=== PATIENT | male | born 1975 | race Hispanic/Latino ===

== ENCOUNTER 2018-02-14 22:24 | Inpatient (IN) | payer OTHER ==
[2018-02-14] MEDS ORDERED: Acetaminophen 325 MG TAB PO PRN (23:41)
[2018-02-14 23:45] LABS: Anion Gap 11 mmol/L (10-20); BUN (Urea Nitrogen) 10 mg/dL (8.9-20.6); Calc. Creatinine Clearance 0 mL/min (70-130); Calcium 9.5 mg/dL (7.8-10.44); Carbon Dioxide 30 mmol/L (22-29); Chloride 98 mmol/L (98-107); Estimated GFR-MDRD Greater than 90; Glucose 94 mg/dL (70-105); Potassium 3.3 mmol/L (3.5-5.1); Sodium 136 mmol/L (136-145)
[2018-02-15] MEDS ORDERED: diphenhydrAMINE 50 MG/ML VIAL ONE
[2018-02-15 00:52] LABS: HBCM Index 0.05 S/CO (0-0.79); HBSAg Index 0.22 S/CO (0-0.99); Hep A IgM AB Non-Reactive (NonReactive); Hep A IgM S/CO 0.11 S/CO (0-0.79); Hep B Surf Ag Non-Reactive S/CO (NonReactive); Hepatitis B Core IgM Abs Non-Reactive (NonReactive)
[2018-02-15] MEDS: Sodium Chloride 0.9% 1,000 ML IV SCH ×3 (00:59→17:40)
[2018-02-15 01:24] VITALS: BMI 27.2
[2018-02-15 01:49] LABS: Hep C IgG Ab Reflex HepC Qnt (NonReactive); Hep C Index 15.79 S/CO (0-0.79)
[2018-02-15] MEDS ORDERED: diphenhydrAMINE 50 MG/ML VIAL IVP SCH (04:15)
[2018-02-15 05:57] LABS: #Basophils 0.1 thou/uL (0.0-0.2); #Eosinphils 0.1 thou/uL (0.0-0.7); #Lymphocytes 1.6 thou/uL (1.20-3.40); #Monocytes 0.7 thou/uL (0.11-0.59); #Neutrophils 5.4 thou/uL (1.40-6.50); %Basophils 0.7 % (0.0-1.0); %Eosinophils 1.3 % (0.0-10.0); %Lymphocytes 20.3 % (21.0-51.0); %Monocytes 9.1 % (0.0-10.0); %Neutrophils 68.7 % (42.0-75.0); Hemoglobin 11.8 g/dL (14.0-18.0); Mean Corpuscular HGB CONC 31.8 g/dL (32.0-36.0); Mean Corpuscular Hemoglobin 29.5 pg (27.0-31.0); Mean Corpuscular Volume 92.7 fL (78.0-98.0); Mean Platelet Volume 10.6 fL (7.4-10.4); Platelet Count 210 thou/uL (130-400); RBC Distribution Width 14.6 % (11.5-14.5); Red Blood Cell (RBC) Count 4.01 mill/uL (4.70-6.10); White Blood Cell (WBC) Count 7.9 thou/uL (4.8-10.8)
[2018-02-15 06:22] LABS: ALT (SGPT) 34 U/L (8-55); AST (SGOT) 59 U/L (5-34); Albumin 2.8 g/dL (3.5-5.0); Alkaline Phosphatase 251 U/L (40-150); Anion Gap 11 mmol/L (10-20); BUN (Urea Nitrogen) 10 mg/dL (8.9-20.6); Calc. Creatinine Clearance 145 mL/min (70-130); Calcium 8.9 mg/dL (7.8-10.44); Carbon Dioxide 27 mmol/L (22-29); Chloride 102 mmol/L (98-107); Estimated GFR-MDRD Greater than 90; Globulin 3.2 g/dL (2.4-3.5); Glucose 91 mg/dL (70-105); Potassium 3.1 mmol/L (3.5-5.1); Sodium 137 mmol/L (136-145)
[2018-02-15 06:32] LABS: Bilirubin, Total 27.9 mg/dL (0.2-1.2)
--- NOTE | 2018-02-15 06:58 | HP ---
CHIEF COMPLAINT: Abdominal pain and itching. HISTORY OF PRESENT ILLNESS: Patient is a 43-year-old male who is an inmate who presents to the [facility] with complaints of abdominal pain, which has progressively gotten worse for the past couple weeks . Patient stated that for the past couple days, he has been itching and also has been a little bit n auseated. Patient stated that his abdominal pain initially was intermittent; however, now it is more frequent and more constant. He denies any fevers or chills. The patient states that he had his gal lbladder removed and also a part of his liver removed when he was 12 years old. He does not recall w hat was the reason for removal of his partial liver. The patient also had a blood transfusion when jayden lunsford was 12 years old during the hospitalization which required cholecystectomy. Patient states that he has never really had any issues with elevated bilirubin. Patient did states that he has been diagno sed with hepatitis C; however, he had his hepatitis C checked last year prior to incarceration and wa s told that everything looked okay. The patient stated that his stools have been more light brown in color recently. The patient also stated that he recently has been taking some sinus medication that was prescribed to him by the [facility], it was Nexium that he was on, he was given some prednisone a nd loratadine. PAST MEDICAL HISTORY: Hepatitis C. PAST SURGICAL HISTORY: He had a cholecystectomy and partial liver resection, according to him. SOCIAL HISTORY: Denies any drug use, occasionally smokes and prior to his incarceration, he used to drink about 2-4 cans of beer a day. Patient is a full code currently. ALLERGIES: He has got no known allergies. MEDICATIONS: The patient was recently has been taking Nexium and loratadine for allergies and also w as on prednisone. REVIEW OF SYSTEMS: All negative except for the ones mentioned above in the HPI. PHYSICAL EXAMINATION: VITAL SIGNS: Temperature of 98.1, 72, 16, 97% on room air, 124/69. GENERAL: He is awake, alert, oriented x3, appears pretty icteric. HEENT: His sclerae are significantly icteric. Also, his mucous membranes has mild yellow tint. CARDIOVASCULAR: S1, S2 present. No murmurs, rubs or gallops. LUNGS: Clear to auscultation. No rhonchi or wheezes noted. ABDOMEN: Soft. Bowel sounds are present x2. He does have pain upon palpation all over his abdomen area. EXTREMITIES: Pedal pulses present x2. No nuchal edema noted. NEUROLOGIC: No focal deficits noted. SKIN: His skin is significantly icteric. LABORATORY DATA: As of the following, patient initially was taken to [facility] where his C BC indicated a white count of 9.6, hemoglobin of 13.0, hematocrit of 37.0, platelets was 212. Differ ential was significantly normal. Liver function, sodium of 133, potassium of 2.5, chloride 95, BUN o f 13, creatinine of 0.4, his alkaline phosphatase was mildly elevated at 257 and his AST was 74, ALT was 44, bilirubin total was 32.6, bilirubin direct was 21.5. IMAGING: He did have a CT abdomen and pelvis, which indicated the following, CT abdomen and pelvis i ndicated a normal measured common bile duct. The liver is unremarkable and is visualized. The pancr eas is obscured. The kidneys showed no evidence of hydronephrosis. There is a tiny echogenic foci t hat indicated a nonobstructing calculi in the right kidney, so his abdominal pelvis CAT scan was esse ntially normal. ASSESSMENT AND PLAN: The patient is a 43-year-old male who presents to the hospital with abdominal p ain and jaundice. 1. Elevated bilirubin/jaundice. The patient's bilirubin is 32, appears to be significantly conjugat ed, no sign of hemolysis is noted since his hemoglobin is normal at 13 and the differential would be intrahepatic versus extrahepatic. We will check a hepatitis panel again, I do not think his hepatiti s C would give him significant elevation in his bilirubin. We will consult GI also. There is a poss ibility that certain medications could also be causing his elevated bilirubin, especially either if h e has Rotor syndrome versus Sabine-Serg syndrome and also possibly just using corticosteroids can a lso cause this; however, I am not sure exactly how many doses he took of the steroids. We will karsten nue some IV hydration. We will add some ursodiol since the patient is complaining of significant lisandra unt of itching. 2. Hypokalemia. We will replace his potassium and continue to monitor. 3. Deep venous thrombosis prophylaxis. We will put the patient on some sequential compression devic es.
[2018-02-15] MEDS ORDERED: Potassium Chloride 20 MEQ TAB PO SCH ×2 (08:15→17:00)
[2018-02-15 08:50] LABS: Bilirubin, Total 27.7 mg/dL (0.2-1.2)
[2018-02-15] MEDS ORDERED: Ursodiol 300 MG CAP PO SCH (09:00)
[2018-02-15 09:08] LABS: Phosphorus 2.4 mg/dL (2.3-4.7)
[2018-02-15 09:16] LABS: Bilirubin, Direct 19.4 mg/dL (0.1-0.3)
[2018-02-15] MEDS: hydrOXYzine 10 MG TAB PO PRN ×2 (15:24→22:18)
[2018-02-15] MEDS: Cholestyramine/Aspartame 4 gm Packet PO SCH (22:14)
--- NOTE | 2018-02-15 23:45 | CON ---
DATE OF CONSULTATION: 02/15/2018 REASON FOR CONSULTATION: Cholestasis/jaundice. CONSULTING PHYSICIAN: Dr. Kemi Schaffer. HISTORY OF PRESENT ILLNESS: The patient is a 43-year-old male with past medical history of possible chronic hepatitis C infection presenting with complaints of abdominal pain and jaundice. He states that over the last one month, he has been having increased mid epigastric/right upper quadrant abdominal pain characterized as a sharp/cramping type sensation that was nonradiating, initially intermittent but now more constant and would reach a severity of 5-6/10. He states the pain was associated with increased itching as well as yellowing of both his skin and his eyes over the same time period. Prior to these episodes, he states that he adds that he had been complaining of increased headaches as well as increased nasal congestion, for which he has been taking medications for both his headaches as well as an uhki-dfp-qeaakqk flu formulation in relation to his congestion. Also, of note, he was recently placed on sinus medication prednisone and loratadine for treatment of these conditions as well. Over the last 1-2 weeks, he also complains of increased bright red blood per rectum with hematochezia present primarily on the toilet paper with increased wiping, where it would happen approximately 1-2 times over the last week. He also endorses having approximately 1 to 2 solid bowel movements per day that would sometimes require intermittent straining in order to defecate. Lastly, he also complains of an increased weight loss of approximately 20 pounds over the last 2 weeks with some mild increase in exercise, but no significant dietary changes. However, he also adds that he gained approximately 10 pounds over the last week again with no significant change in activity or dietary measures. Currently, he denies any nausea, vomiting, fevers, chills, GI bleeding, dysphagia, odynophagia, encephalopathy, ascites, or lower extremity edema. Of note, the patient states that when he was 12 years old, he had his gallbladder and a portion of his liver removed, after which he did experience increased jaundice and was placed on cholestyramine for increased itching associated with this jaundice. REVIEW OF SYSTEMS: A 10-category review of systems was obtained with all responses negative with except for the pertinent positives as listed in the HPI. PAST MEDICAL HISTORY: Possible chronic hepatitis C. PAST SURGICAL HISTORY: Cholecystectomy with partial liver resection. FAMILY HISTORY: Denies any GI malignancies. SOCIAL HISTORY: Denies any tobacco, alcohol, or illicit drug use (he is currently incarcerated). OUTPATIENT MEDICATIONS: Nexium, loratadine, and prednisone. ALLERGIES: No known drug allergies. PHYSICAL EXAMINATION: VITAL SIGNS: Temperature 98.9, pulse 75, blood pressure 113/66, respiratory rate 16, satting 99% on room air. GENERAL: Patient was lying in bed in no acute distress. Alert and oriented x4. NECK: Supple. No JVD noted. Scleral icterus. Positive. CARDIOVASCULAR: Regular rate and rhythm with no discernible murmurs, gallops or rubs. LUNGS: Clear to auscultation bilaterally with no discernible wheezes or rales. ABDOMEN: Normoactive bowel sounds, soft, nontender, nondistended. EXTREMITIES: No cyanosis, clubbing, or edema. LABORATORY DATA: CBC with white blood cell count of 7.9, hemoglobin of 11.8, hematocrit 37.2, platelets 210. Chemistry with a sodium of 137, potassium 3.1, chloride 102, CO2 of 27, BUN 10, creatinine 0.74, glucose 91. AST 59, ALT 34, alkaline phosphatase 251, total bilirubin 27.7, LDH 353, albumin 2.8. Serologies revealed a hepatitis C antibody with viral load pending at this time. Imaging data mentioned of a prior CTA of the abdomen and pelvis performed in outside institution was listed in his chart, where the CT showed a normal common bile duct with the liver unremarkable. The pancreas was obscured with further evaluation limited. There was also a tiny echogenic foci indicating a nonobstructing calculi within the right kidney, but otherwise no intraabdominal pathology was noted. ASSESSMENT AND PLAN: The patient is a 43-year-old male with past medical history of possible chronic hepatitis C infection presenting with cholestasis on labs and jaundice on clinical evaluation. Jaundice: The patient states that he was in his usual state of health until approximately 1 month ago, when he began having increased systemic itching centered primarily on the lower and upper extremities. He also had increased scleral icterus and yellowing of his skin associated with increased abdominal pain and unexplained weight loss over the last 2 to 3 weeks. However, upon questioning the patient, he adds that he has been on multiple different medications over the last 1 to 2 months with taking an xoby-rmm-mnzsfeq flu formulation as well as a medication for headaches immediately prior to the onset of jaundice and scleral icterus. It is unknown what these medications particularly were, for that patient cannot remember the active ingredients. At this time given his relatively normal transaminases but elevated alkaline phosphatase and T bili, it assumes more of a cholestatic-type picture, given his normal CT scan at the outside institution. An obstructive process is highly unlikely. At this time, given the medication administration shortly before the appearance of jaundice, drug-induced liver injury, and resulting cholestasis is much more likely. Given the degree of elevation of his hyperbilirubinemia and length of time for this hyperbilirubinemia, it has probably had a chance to with albumin and may take some time in order to resolve with more conservative type measures; however, his differential could also include primary biliary cholangitis, chronic human immunodeficiency virus infection, worsening of chronic liver disease secondary to chronic hepatitis C infection, or anatomical abnormality associated with surgery when the patient was a kid. RECOMMENDATIONS: 1. We would follow up on the viral load for chronic hepatitis C to indicate possible active infection at this time. 2. Would obtain both antimitochondrial antibody and HIV for determination of possible primary biliary cholangitis and/or HIV infection respectively. 3. We would place the patient on cholestyramine 4 mg b.i.d. for symptomatic relief related to systemic itching with hyperbilirubinemia. 4. We would continue to monitor LFTs daily for evaluation of either improvement or worsening liver function. 5. Would avoid any potentially hepatotoxic medications. We will continue to follow. Please call with any questions. EDGARD
[2018-02-16] MEDS: Sodium Chloride 0.9% 1,000 ML IV SCH ×3 (02:50→17:26)
[2018-02-16] MEDS: hydrOXYzine 10 MG TAB PO PRN ×2 (04:24→17:24)
[2018-02-16 05:08] LABS: #Basophils 0.1 thou/uL (0.0-0.2); #Eosinphils 0.2 thou/uL (0.0-0.7); #Lymphocytes 1.4 thou/uL (1.20-3.40); #Monocytes 0.7 thou/uL (0.11-0.59); #Neutrophils 6.6 thou/uL (1.40-6.50); %Basophils 0.8 % (0.0-1.0); %Eosinophils 2.2 % (0.0-10.0); Mean Corpuscular HGB CONC 31.7 g/dL (32.0-36.0); Mean Corpuscular Hemoglobin 29.5 pg (27.0-31.0); Mean Corpuscular Volume 93.1 fL (78.0-98.0); Mean Platelet Volume 10.6 fL (7.4-10.4); Platelet Count 255 thou/uL (130-400)
[2018-02-16 05:31] LABS: Bilirubin, Total 31.9 mg/dL (0.2-1.2)
[2018-02-16 05:33] LABS: ALT (SGPT) 41 U/L (8-55); AST (SGOT) 73 U/L (5-34); Alkaline Phosphatase 270 U/L (40-150); Anion Gap 13 mmol/L (10-20); BUN (Urea Nitrogen) 5 mg/dL (8.9-20.6); Calc. Creatinine Clearance 136 mL/min (70-130); Calcium 9.1 mg/dL (7.8-10.44); Carbon Dioxide 26 mmol/L (22-29); Chloride 104 mmol/L (98-107); Estimated GFR-MDRD Greater than 90; Globulin 3.6 g/dL (2.4-3.5); Glucose 83 mg/dL (70-105); Potassium 3.2 mmol/L (3.5-5.1); Protein, Total 6.6 g/dL (6.0-8.3); Sodium 140 mmol/L (136-145)
[2018-02-16] MEDS: Potassium Chloride 20 MEQ TAB PO SCH ×3 (08:04→17:24)
[2018-02-16 08:48] LABS: INR-International Normal Ratio 2.5; Prothrombin Time 26.6 SEC (12.0-14.7)
[2018-02-16] MEDS: Cholestyramine/Aspartame 4 gm Packet PO SCH ×2 (10:11→21:04)
--- NOTE | 2018-02-16 12:06 | PDOC.PN ---
- Subjective Encounter Start Date: 02/16/18 Encounter Start Time: 09:30 Patient seen and examined for Abn LFTs. No N/V. No new complaints. No overnight events - Objective Resuscitation Status: Resuscitation Status FULL:Full Resuscitation MAR Reviewed: Yes Vital Signs & Weight: Vital Signs (12 hours) Temp Pulse Resp BP Pulse Ox 02/16/18 08:03 95 02/16/18 08:00 97.9 F 75 18 119/64 95 02/16/18 04:00 97.7 F 77 16 122/69 93 L Weight Admit Weight 179 lb 3.2 oz Weight 179 lb 3.2 oz I&O: 02/15/18 02/16/18 02/17/18 06:59 06:59 06:59 Intake Total 888 4175 Output Total 600 3170 Balance 288 1005 Result Diagrams: 02/16/18 04:31 02/16/18 04:31 Phys Exam - Physical Examination Constitutional: NAD Jaundiced Respiratory: no wheezing, no rhonchi Cardiovascular: RRR, no rub Gastrointestinal: soft, positive bowel sounds Musculoskeletal: no edema Neurological: moves all 4 limbs Dx/Plan - Plan DVT proph w/SCDs 1. Abn LFTs/Jaundice - ?etio 2. Hypokalemia 3. Chronic Hep C 4. GERD PLAN: Await HIV/Mitochondrial antibody/Hep C RNA PCR Replace Potassium AM labs Cont Questran Cont IVF Review of Systems - Review of Systems Respiratory: negative: Cough, Dry, Shortness of Breath, Hemoptysis, SOB with Excertion, Pleuritic Pain, Sputum, Wheezing Cardiovascular: negative: chest pain, palpitations, orthopnea, paroxysmal nocturnal dyspnea, edema, light headedness, other - Medications/Allergies Allergies/Adverse Reactions: Allergies Allergy/AdvReac Type Severity Reaction Status Date / Time No Known Allergies Allergy Verified 02/15/18 02:02 Medications: Current Medications Cholestyramine Resin (Questran Light) 4 gm PO 1000,2200 [facility] Last Admin: 02/16/18 10:11 Dose: 4 gm Hydroxyzine HCl (Atarax) 10 mg PO Q6H PRN PRN Reason: Itching Last Admin: 02/16/18 04:24 Dose: 10 mg Sodium Chloride (Normal Saline 0.9%) 1,000 mls @ 110 mls/hr IV .[id number] [facility] Last Admin: 02/16/18 11:46 Dose: 1,000 mls Pantoprazole Sodium (Protonix) 40 mg PO DAILY [facility] Last Admin: 02/16/18 08:04 Dose: 40 mg Potassium Chloride (K-Dur) 20 meq PO TID-WM [facility] Last Admin: 02/16/18 11:46 Dose: 20 meq Sodium Chloride (Flush - Normal Saline) 10 ml IVF Q12HR [facility] Last Admin: 02/16/18 08:05 Dose: Not Given Sodium Chloride (Flush - Normal Saline) 10 ml IVF PRN PRN PRN Reason: Saline Flush
--- NOTE | 2018-02-16 14:47 | PRG ---
DATE OF SERVICE: 02/16/2018 REASON FOR CONSULTATION: Cholestasis/jaundice. SUBJECTIVE: The patient states that he did well overnight with no acute events or problems. However , he does continue to have some itching that is only mildly improved with the administration of elham styramine. Currently, he denies any nausea, vomiting, fevers, chills, shortness of breath, GI bleedi ng or abdominal pain. OBJECTIVE: VITAL SIGNS: Temperature 97.9, pulse 75, blood pressure 119/64, respiratory rate 18, satting 95% on room air. GENERAL: The patient was sitting at bedside in no acute distress. Alert and oriented x4. CARDIOVASCULAR: Regular rate and rhythm. PULMONARY: Clear to auscultation bilaterally. ABDOMEN: Normoactive bowel sounds, soft, nontender, nondistended. EXTREMITIES: No cyanosis, clubbing or edema. HEENT: Positive scleral icterus. LABORATORY DATA: CBC with a white blood cell count of 9, hemoglobin 13, hematocrit 41, platelets 255 . Chemistry with a sodium of 140, potassium 3.2, chloride 104, CO2 26, BUN 5, creatinine 0.79, gluco se 83, AST 73, ALT 41, alkaline phosphatase 270, total bilirubin 31.9. IMAGING DATA: No current GI imaging is available for review. ASSESSMENT AND PLAN: The patient is a 43-year-old male with past medical history of possible chronic hepatitis C infection as well as partial hepatectomy presenting with cholestasis/jaundice. Jaundice: The patient states that he was in his usual state of health until approximately 1 month ag o when he began having increased systemic itching seen primarily on the upper and lower extremities. This occurred shortly after the administration of an qbkn-arg-mooiwbn headache medication and/or flu medication; however, with discontinuation of these medications approximately 1 month ago, he continu ed to have significant jaundice as evidenced on serologies during this admission. Given his LFT ebenezer whit, it is more consistent with a cholestatic type picture given his elevated alkaline phosphatase an d total bilirubin. Given his normal CT scan at the outside institution, an obstructive process is hi ghly unlikely, although an intrahepatic process cannot be necessarily ruled out at this time either. With the onset of these symptoms occurring shortly after mlns-yjz-upuilmw drug medication use, the l ikelihood of a drug-induced liver injury is more likely; however, his labs are continuing to uptrend as opposed to downtrend and with removing the approximately 1 month ago, it is concerning for a n ongoing process. With that being said, I would recommend performing a full liver workup on the pat ient with serologies for various liver pathology to rule out any underlying source. If this is all c oming back negative, then we would consider repeat MRI for further evaluation of the intrahepatic tanner e. RECOMMENDATIONS: 1. We will follow up on the viral load for chronic hepatitis C to indicate possible active infection . 2. We will obtain full liver workup at this time for determination of possible underlying liver path ology. 3. We would continue cholestyramine 4 mg twice daily for symptomatic relief of systemic itching with hyperbilirubinemia. This could be potentially increased to 4 mg 4 times daily. 4. We would continue to monitor LFTs daily for evaluation and improvement, but would also obtain INR s daily to indicate possible liver dysfunction. 5. We would avoid any potentially hepatotoxic medications. I will discontinue the PPI at this time given its possibility of liver damage. We will continue to follow. Please call with any questions.
[2018-02-16] MEDS ORDERED: diphenhydrAMINE 12.5 MG/5 ML UDCUP PO PRN (19:04)
[2018-02-17] MEDS: Sodium Chloride 0.9% 1,000 ML IV SCH ×2 (00:01→20:34)
[2018-02-17] MEDS: hydrOXYzine 10 MG TAB PO PRN ×2 (00:02→09:16)
[2018-02-17 05:55] LABS: #Eosinphils 0.2 thou/uL (0.0-0.7); #Lymphocytes 1.3 thou/uL (1.20-3.40); #Monocytes 0.5 thou/uL (0.11-0.59); #Neutrophils 8.2 thou/uL (1.40-6.50); %Basophils 0.5 % (0.0-1.0); %Eosinophils 2.1 % (0.0-10.0); %Lymphocytes 12.6 % (21.0-51.0); %Monocytes 4.9 % (0.0-10.0); Mean Corpuscular HGB CONC 31.7 g/dL (32.0-36.0); Mean Corpuscular Hemoglobin 29.6 pg (27.0-31.0); Mean Corpuscular Volume 93.2 fL (78.0-98.0); Mean Platelet Volume 10.7 fL (7.4-10.4); Platelet Count 257 thou/uL (130-400); RBC Distribution Width 15.1 % (11.5-14.5); Red Blood Cell (RBC) Count 4.39 mill/uL (4.70-6.10); White Blood Cell (WBC) Count 10.2 thou/uL (4.8-10.8)
[2018-02-17 06:26] LABS: Bilirubin, Total 33.3 mg/dL (0.2-1.2)
[2018-02-17 06:44] LABS: HIV (1/2) Antibody/Antigen Non-Reactive (NonReactive); HIV 1/2 INDEX 0.06 S/CO (<1.00)
[2018-02-17 06:59] LABS: ALT (SGPT) 43 U/L (8-55); AST (SGOT) 77 U/L (5-34); Albumin 3.1 g/dL (3.5-5.0); Alkaline Phosphatase 287 U/L (40-150); Anion Gap 14 mmol/L (10-20); BUN (Urea Nitrogen) 8 mg/dL (8.9-20.6); Calc. Creatinine Clearance 114 mL/min (70-130); Calcium 9.3 mg/dL (7.8-10.44); Carbon Dioxide 22 mmol/L (22-29); Chloride 103 mmol/L (98-107); Estimated GFR-MDRD 87; Globulin 3.8 g/dL (2.4-3.5); Glucose 100 mg/dL (70-105); Iron 79 ug/dL (65-175); Iron Binding Capacity, Total 301 mcg/dL (261-462); Potassium 3.1 mmol/L (3.5-5.1); Protein, Total 6.9 g/dL (6.0-8.3); Sodium 136 mmol/L (136-145)
[2018-02-17] MEDS: Cholestyramine/Aspartame 4 gm Packet PO SCH ×2 (09:16→20:35)
[2018-02-17] MEDS: Potassium Chloride 20 MEQ TAB PO SCH ×3 (09:17→17:24)
--- NOTE | 2018-02-17 13:47 | PDOC.PN ---
- Subjective Encounter Start Date: 02/17/18 Encounter Start Time: 09:30 Patient seen and examined for Liver failure. Itching persists. No new complaints. No overnight events - Objective Resuscitation Status: Resuscitation Status FULL:Full Resuscitation MAR Reviewed: Yes Vital Signs & Weight: Vital Signs (12 hours) Temp Pulse Resp BP BP Pulse Ox 02/17/18 08:00 94 L 02/17/18 07:53 97.9 F 91 17 121/81 94 L 02/17/18 05:09 97.2 F L 88 20 129/85 97 Weight Admit Weight 179 lb 3.2 oz Weight 179 lb 3.2 oz I&O: 02/16/18 02/17/18 02/18/18 06:59 06:59 06:59 Intake Total 4175 3241 180 Output Total 3170 3760 Balance 1005 -519 180 Result Diagrams: 02/17/18 05:04 02/17/18 05:04 Phys Exam - Physical Examination Constitutional: NAD Respiratory: no wheezing, no rhonchi Cardiovascular: RRR, no rub Gastrointestinal: soft, positive bowel sounds minimal RUQ tenderness, no rebound/guarding Musculoskeletal: no edema Neurological: moves all 4 limbs Dx/Plan - Plan DVT proph w/SCDs 1. Liver failure/Jaundice - ?etio 2. Hypokalemia 3. Chronic Hep C 4. GERD PLAN: Await following test results Replace Potassium AM labs Cont Questran at current dose Cont other meds as below Will initiate transfer to [facility] per GI recommendation MRCP today Orders Following test pending Mitochondrial Antibody LUIS Screen w/ Rflx to 8 RAPHAEL's [id number] CMV IgG & IgM Antibodies Ceruloplasmin Corby Cortes Virus PCR Smooth Muscle Total ABS MRI Abdomen W WO Contrast Laboratory Tests 02/15/18 02/16/18 02/17/18 00:00 08:34 05:03 PT 26.6 H INR 2.5 Iron TIBC Ferritin 479.50 H Total Bilirubin AST IgG Total IgA Total IgM Total Hepatitis C Antibody Reflex HepC Qnt H HIV 1&2 Antigen & Ab Non-Reactive 02/17/18 02/17/18 05:04 05:04 PT INR Iron 79 TIBC 301 Ferritin Total Bilirubin 33.3 H AST 77 H IgG Total 1623.00 IgA Total 298.00 IgM Total 102.00 Hepatitis C Antibody HIV 1&2 Antigen & Ab Review of Systems - Review of Systems Respiratory: negative: Cough, Dry, Shortness of Breath, Hemoptysis, SOB with Excertion, Pleuritic Pain, Sputum, Wheezing Cardiovascular: negative: chest pain, palpitations, orthopnea, paroxysmal nocturnal dyspnea, edema, light headedness, other - Medications/Allergies Allergies/Adverse Reactions: Allergies Allergy/AdvReac Type Severity Reaction Status Date / Time No Known Allergies Allergy Verified 02/15/18 02:02 Medications: Current Medications Cholestyramine Resin (Questran Light) 4 gm PO 1000,2200 [facility] Last Admin: 02/17/18 09:16 Dose: 4 gm Diphenhydramine HCl (Benadryl) 12.5 mg PO HSPRN PRN PRN Reason: .INSOMNIA Last Admin: 02/16/18 21:04 Dose: 12.5 mg Hydroxyzine HCl (Atarax) 10 mg PO Q6H PRN PRN Reason: Itching Last Admin: 02/17/18 09:16 Dose: 10 mg Sodium Chloride (Normal Saline 0.9%) 1,000 mls @ 70 mls/hr IV .[id number] [facility] Last Admin: 02/17/18 00:01 Dose: 1,000 mls Potassium Chloride (K-Dur) 20 meq PO TID-WM [facility] Last Admin: 02/17/18 09:17 Dose: 20 meq Sodium Chloride (Flush - Normal Saline) 10 ml IVF Q12HR [facility] Last Admin: 02/17/18 09:17 Dose: Not Given Sodium Chloride (Flush - Normal Saline) 10 ml IVF PRN PRN PRN Reason: Saline Flush
--- NOTE | 2018-02-17 14:57 | MRI ---
MRI ABDOMEN WITH AND WITHOUT IV CONTRAST: HISTORY: A 43-year-old male with worsening liver function, hepatitis C, increasing abdominal pain. FINDINGS: The liver demonstrates normal signal without focal mass or abnormal biliary ductal dilatation. The g allbladder is not visualized. The spleen is mildly enlarged measuring 14.5 cm in length. The pancre as and adrenal glands are normal. There is a tiny cyst in the superior pole of the right kidney and a 12 mm exophytic cyst arising from the inferior pole of the left kidney. No free fluid or lymphadenopathy is seen in the abdomen. The small bowel loops are not abnormally dilated. The caliber of the abdominal aorta is normal. The jim ne marrow signal is normal. Postcontrast images demonstrate no abnormal enhancement. IMPRESSION: 1. No evidence of hepatic mass. 2. Mild splenomegaly. 3. Renal cysts. POS: [facility]
[2018-02-17] MEDS ORDERED: diphenhydrAMINE 12.5 MG/5 ML UDCUP PO PRN (16:00)
--- NOTE | 2018-02-17 17:53 | PRG ---
DATE OF SERVICE: 02/17/2018 REASON FOR CONSULTATION: Cholestasis/jaundice. SUBJECTIVE: The patient states that he did well overnight with no acute events or problems. He does have continued itching despite administration of cholestyramine twice daily. Otherwise, he denies a ny nausea, vomiting, fevers, chills, shortness of breath, GI bleeding or abdominal pain. OBJECTIVE: VITAL SIGNS: Temperature 97.9, pulse 91, blood pressure 121/81, respiratory rate 17, satting 94% on room air. GENERAL: The patient was lying in bed in no acute distress. Alert and oriented x4. CARDIOVASCULAR: Regular rate and rhythm. RESPIRATORY: Clear to auscultation bilaterally. ABDOMEN: Normoactive bowel sounds, soft, nontender, nondistended. EXTREMITIES: No cyanosis, clubbing or edema. LABORATORY DATA: CBC with a white blood cell count of 10.2, hemoglobin 13, hematocrit 40.9, platelet s 257. INR 2.5. Chemistry with a sodium of 136, potassium 3.1, chloride 103, CO2 is 22, BUN 8, crea tinine 0.94, glucose 100, AST 77, ALT 43, alkaline phosphatase 287, total bilirubin 33.3. Iron 79, f erritin 479, TIBC 301, albumin 3.1. Immunoglobulin profile normal. HIV negative. Calculated MELD s core of 31. IMAGING DATA: MRI of the liver was obtained on 02/17/2018 which showed normal signal within the live r, without focal mass or abnormal biliary ductal dilatation. The spleen was mildly enlarged at 14.5 cm in length. Otherwise, an unremarkable examination. ASSESSMENT AND PLAN: The patient is a 43-year-old male with past medical history of possible chronic hepatitis C infection as well as partial hepatectomy presenting with cholestasis/jaundice. Cholestasis/jaundice. The patient states that he was in his usual state of health until approximately 1 month ago when he b new having increased systemic whole body itching seen primarily in the upper and lower extremities. This occurred shortly after the administration of another over the counter headache medication and f faith medication (both these medications unknown at this time and dosage unknown, as well); however, wit h discontinuation of these medications approximately 1 month ago, he continues to have significant ja undice as evidenced by serologies during his admission and currently. Given the LFT pattern, it is m ore consistent with a cholestatic type picture. However, he continues to have elevated total bilirub in and alkaline phosphatase despite discontinuation of the medications one month ago. Further evalua tion yielded an INR of 2.5, which is suggestive of significant liver dysfunction and could be a heral d of impending liver failure. He does not exhibit any symptoms of hepatic encephalopathy at this jose luis e, but if he does, he would also herald impending liver failure. At this time, the etiology for his worsening liver function is unknown with labs negative for hemochromatosis and initially for autoimmu ne hepatitis given negative immunoglobulin profile. Based on his INR 2.5 and total bilirubin of 33, a calculated MELD score is of 31 indicating an approximate 60%, 90-day mortality given his liver dysf unction. Given his elevated MELD score and unknown etiology for his worsening liver function, transf er to a tertiary care center for further evaluation (one that peripherally has a liver transplant pro gram) would be indicated. RECOMMENDATIONS: 1. We will follow up on additional remaining labs for liver workup of possible determination of unde rlying liver pathology. 2. We would increase cholestyramine to 4 times daily for systemic itching, associated with hyp erbilirubinemia. 3. We would continue to monitor LFTs daily and INR daily for signs of hepatic dysfunction. We will also continue to monitor clinically for signs of hepatic encephalopathy. 4. We would of attempt to avoid any potentially hepatotoxic medications. 5. We would recommend transfer to a tertiary care institution given his worsening liver function and possible impending liver failure. 6. We would consider administration of steroids at this time, but so far, labs have been negative fo r an autoimmune type process within the liver, nor did he have any alcohol abuse prior to admission c onsistent with alcoholic hepatitis. We will continue to follow. Please call with any questions.
[2018-02-18 06:32] LABS: #Basophils 0.1 thou/uL (0.0-0.2); #Eosinphils 0.2 thou/uL (0.0-0.7); #Lymphocytes 1.5 thou/uL (1.20-3.40); #Monocytes 0.6 thou/uL (0.11-0.59); #Neutrophils 6.3 thou/uL (1.40-6.50); %Basophils 0.9 % (0.0-1.0); %Eosinophils 2.8 % (0.0-10.0); %Lymphocytes 17.2 % (21.0-51.0); %Neutrophils 72.1 % (42.0-75.0); Hemoglobin 11.9 g/dL (14.0-18.0); Mean Corpuscular HGB CONC 33.1 g/dL (32.0-36.0); Mean Corpuscular Hemoglobin 30.3 pg (27.0-31.0); Mean Corpuscular Volume 91.8 fL (78.0-98.0); Mean Platelet Volume 10.1 fL (7.4-10.4); Platelet Count 235 thou/uL (130-400); RBC Distribution Width 15.4 % (11.5-14.5); Red Blood Cell (RBC) Count 3.92 mill/uL (4.70-6.10); White Blood Cell (WBC) Count 8.7 thou/uL (4.8-10.8)
[2018-02-18 06:33] LABS: INR-International Normal Ratio 2.2; Prothrombin Time 24.3 SEC (12.0-14.7)
[2018-02-18 06:46] LABS: ALT (SGPT) 39 U/L (8-55); AST (SGOT) 64 U/L (5-34); Albumin 2.7 g/dL (3.5-5.0); Alkaline Phosphatase 232 U/L (40-150); Anion Gap 12 mmol/L (10-20); BUN (Urea Nitrogen) 12 mg/dL (8.9-20.6); Calc. Creatinine Clearance 139 mL/min (70-130); Carbon Dioxide 23 mmol/L (22-29); Chloride 104 mmol/L (98-107); Estimated GFR-MDRD Greater than 90; Globulin 3.3 g/dL (2.4-3.5); Glucose 101 mg/dL (70-105); Potassium 3.3 mmol/L (3.5-5.1); Sodium 136 mmol/L (136-145)
[2018-02-18 06:57] LABS: Bilirubin, Total 28.4 mg/dL (0.2-1.2)
[2018-02-18] MEDS: Potassium Chloride 20 MEQ TAB PO SCH ×3 (08:24→16:40)
[2018-02-18] MEDS: Cholestyramine/Aspartame 4 gm Packet PO SCH ×3 (09:00→16:37)
[2018-02-18] MEDS: Sodium Chloride 0.9% 1,000 ML IV SCH (11:44)
--- NOTE | 2018-02-18 14:06 | DIS ---
DATE OF DISCHARGE: 02/18/2018 DISCHARGE DISPOSITION: To [facility]. ALLERGIES: No known drug allergies. DISCHARGE MEDICATION: Questran 4 grams b.i.d. The patient was seen and examined on the day of discharge, denies any new complaints, no chest pain, shortness of breath, palpitations reported. BRIEF HOSPITAL COURSE: Patient is a 43-year-old male with chronic hepatitis C, who presented to the hospital on 02/15/2018 with abdominal pain and itching. He was found to have significantly elevated LFTs with bilirubin of 28. He also has a history of partial resection of the liver along with gallbl adder when he was 12 years old. He stated that his gallbladder was infected at that time. He also h as a history of blood transfusion when he was 12 during the same hospitalization. Please refer to th e history and physical for further details. The patient was admitted to the hospital with diagnosis of abnormal LFTs/cholestasis/jaundice. He wa s evaluated by Gastroenterology, Dr. Jean Baptiste. His liver enzymes have persistently remained in this ran ge. Yesterday it was 33.3, today it was 28.4. Due to elevated MELD score of 31, patient will be tra nsferred to a tertiary care center per GI recommendation. FINAL DIAGNOSES: 1. Liver failure/jaundice/cholestasis of unclear etiology. 2. Hypokalemia, replaced. His potassium this morning was 3.3. 3. Chronic hepatitis C. 4. Gastroesophageal reflux disease. 5. Generalized itching improved with cholestyramine 6. History of cholecystectomy with partial resection of the liver at age of 12. 7. History of blood transfusion at the age of 12. 8. History of alcohol abuse in the past. 9. 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 SIGNIFICANT LABORATORIES: HIV negative, hepatitis C antibody pending. IgG was 1623. IgA is 298. I gM is 102. WBC of 8.7 with hemoglobin 11.9, hematocrit 36, platelet count of 235. TESTS PENDING AT DISCHARGE: 1. Alpha 1 antitrypsin level. 2. LUIS. 3. Smooth muscle antibodies. 4. Ceruloplasmin 5. CMV. 6. Corby-Cortes virus. 7. Mitochondrial antibody. Plan of care was discussed with the patient in detail. He stated understanding.
[2018-02-18 16:29] VITALS: BP 124/87; TEMP 99
[2018-02-19 11:07] LABS: CMV IgG AB Greater than 10.00 U/mL (0.00-0.59)
[2018-02-19 16:07] LABS: Alpha-1-Antitrypsin 226 mg/dL (90-200)
[2018-02-20 11:46] LABS: ANA Symphony (Qualitative) Negative (Negative); dsDNA IgG Antibody 1.9 IU/mL (<10 Negative)
[2018-02-20 12:48] LABS: EliA Vaculitis New Method **** NEW METHOD ****; Mitochondrial Ab 1.2 U/mL (<4 Negative)
[2018-02-20 14:12] LABS: Smooth Muscle Total ABS 28 Units (0-19)
[2018-02-21 15:20] LABS: Epstein Barr Virus PCR Negative (Negative)
== END 2018-02-18 16:45 | disposition short-term general hospital (02) | DRG 441 ==
LOC: ERS 22:24 → 2NO 02-15 00:21 → T4-B 02-15 17:28
PROVIDERS: ADMIT Internal Medicine; ATTEND Internal Medicine
DX: K72.90 Hepatic failure, unspecified without coma (principal); K83.1 Obstruction of bile duct; D68.4 Acquired coagulation factor deficiency; E87.6 Hypokalemia; B18.2 Chronic viral hepatitis C; K21.9 Gastro-esophageal reflux disease without esophagitis; Z90.49 Acquired absence of other specified parts of digestive tract; Z90.5 Acquired absence of kidney; F17.210 Nicotine dependence, cigarettes, uncomplicated
CPT/HCPCS: 36415; 74183; 80048; 80053; 80074; 82103; 82247; 82390; 82728; 83516; 83540; 83550; 83615; 83735; 84100; 85025; 85610; 86038; 86225; 86644; 86645; 87389; 87522; 87798; 90471; 90732; 96361; 96374; G0009; J1200